=== PATIENT | male | born 1965 | race Caucasian/White ===

== ENCOUNTER 2016-05-30 13:25 | Emergency (ER) | payer OTHER ==
[~2016-05-30] VITALS: Ht 185.4 cm; Wt 118.0 kg
[2016-05-30 18:03] LABS: AMPHETAMINE NEGATIVE (500 ng/mL); BARBITURATES NEGATIVE (200 ng/mL); BENZODIAZEPINES PRESUMPTIVE POSITIVE (150 ng/mL); COCAINE NEGATIVE (150 ng/mL); INTERNAL CONTROLS VALID? YES; METHADONE NEGATIVE (200 ng/mL); METHAMPHETAMINE NEGATIVE (500 ng/mL); OPIATES (MORPHINE) NEGATIVE (100 ng/mL); OXYCODONE NEGATIVE (100 ng/mL); PHENCYCLIDINE NEGATIVE (25 ng/mL); PROPOXYPHENE NEGATIVE (300 ng/mL); THC CANNABINOIDS NEGATIVE (50 ng/mL); TRICYCLIC ANTIDEPRESSANTS NEGATIVE (300 ng/mL)
[2016-05-30 18:04] LABS: ADD MEDTOX COMMENT Y
[2016-05-30] MEDS ORDERED: CELEXA40 MG PO (18:12)
[2016-05-30] MEDS ORDERED: COZAAR50 MG PO (18:13)
[2016-05-30] MEDS ORDERED: ATIVAN1 MG PO (18:13)
[2016-05-30 18:21] LABS: HEMATOCRIT 41.6 % (38.0-50.0); MCH 28.8 PG (29.0-34.0); MCHC 35.6 G/DL (30.0-36.0); MCV 80.9 FL (86-99); MEAN PLAT.VOLUME 10.5 uM^3 (9.0-12.4); PLATELET COUNT 185 K/uL (156-360); RBC DIS.WIDTH-CV 13.8 % (11.8-14.6); RED BLOOD COUNT 5.14 M/uL (4.00-5.50); WHITE BLOOD COUNT 8.7 K/uL (4.1-10.2)
[2016-05-30 18:32] LABS: CHLORIDE 107 mEq/L (99-109); POTASSIUM 3.7 mEq/L (3.7-5.4); SODIUM 140 mEq/L (136-147)
[2016-05-30 18:34] LABS: GLUCOSE 92 mg/dL (70-99)
[2016-05-30 18:35] LABS: ANION GAP 11 MEQ/L (2-14)
[2016-05-30 18:37] LABS: SERUM ETHYL ALCOHOL < 10 mg/dL
[2016-05-30 18:38] LABS: GFR ESTIMATE (CALCULATED) > 59 mL/min/
[2016-05-30 18:39] LABS: UREA NITROGEN (BUN) 18 mg/dL (9-23)
[2016-05-30 18:40] LABS: BENZODIAZEPINES QUANT VALUE 0 NG/ML
[2016-05-30 19:15] LABS: BENZODIAZEPINES, URINE SCREEN Negative (200 ng/mL)
[2016-05-30 21:03] VITALS: BP 135/79
== END 2016-05-30 21:09 ==
LOC: EME 13:25
PROVIDERS: Emergency Medicine
DX: F32.9 Major depressive disorder, single episode, unspecified (principal); F41.9 Anxiety disorder, unspecified; R45.851 Suicidal ideations; I10 Essential (primary) hypertension
CPT/HCPCS: 80048; 84999; 85027; 90837; 99281; 99285; G0480